=== PATIENT | female | born 1965 | race Caucasian/White ===

== ENCOUNTER 2023-01-09 05:51 | Day surgery (SDC) | payer OTHER ==
[~2023-01-09] VITALS: Ht 149.9 cm; Wt 112.5 kg
[2023-01-09] MEDS ORDERED: fentaNYL citrate 0.05 MG/ML VIAL ONE (07:25)
[2023-01-09] MEDS ORDERED: LIDOCAINE 2% 100 MG/5 ML UJET TP ONE (07:25)
[2023-01-09] MEDS ORDERED: fentaNYL citrate 0.05 MG/ML VIAL IVP ONE (08:15)
== END 2023-01-09 08:55 | disposition home or self-care (01) ==
LOC: MDS 05:51 → MMU 06:00 → MDS 08:55
PROVIDERS: ATTEND Internal Medicine Gastroenterology
DX: Z12.11 Encounter for screening for malignant neoplasm of colon (principal); K75.81 Nonalcoholic steatohepatitis (NASH); E11.9 Type 2 diabetes mellitus without complications; E78.00 Pure hypercholesterolemia, unspecified; Z80.0 Family history of malignant neoplasm of digestive organs; Z80.3 Family history of malignant neoplasm of breast; Z90.49 Acquired absence of other specified parts of digestive tract; Z79.84 Long term (current) use of oral hypoglycemic drugs; Z79.899 Other long term (current) drug therapy
CPT/HCPCS: 45378; J3010